=== PATIENT | female | born 2000 | race Caucasian/White ===

== ENCOUNTER 2022-07-21 12:11 | Emergency (ER) | payer MEDICAID ==
[~2022-07-21] VITALS: Ht 160 cm; Wt 50.0 kg
[2022-07-21 12:37] VITALS: BP 128/69
[2022-07-21 14:30] LABS: CLARITY URINE CLOUDY (CLEAR); COLOR URINE YELLOW (YELLOW); KETONES URINE NEGATIVE (NEGATIVE); LEUKOCYTE ESTERASE URINE 3+ (NEGATIVE); NITRITE URINE POSITIVE (NEGATIVE); OCCULT BLOOD URINE 2+ (NEGATIVE); PH URINE 7.5 (4.5-8.0); PROTEIN URINE NEGATIVE (NEGATIVE); UROBILINOGEN URINE 0.2 E.U./dL (0.2-1.0)
[2022-07-21] MEDS ORDERED: CEFTRIAXONE SODIUM 500 MG/VIAL IM ONE (14:45)
[2022-07-21] MEDS ORDERED: CEPH500C2 MT (15:21)
[2022-07-21] MEDS ORDERED: DOXY100C5 MT (15:21)
[2022-07-24 05:09] LABS: NEISSERIA GONORRHOEAE NAA Negative (Negative)
== END 2022-07-21 15:52 | disposition home or self-care (01) ==
LOC: ER 12:11
DX: N30.00 Acute cystitis without hematuria (principal); J45.909 Unspecified asthma, uncomplicated; Z20.2 Contact with and (suspected) exposure to infections with a predominantly sexual mode of transmission
CPT/HCPCS: 81003; 81025; 87077; 87086; 87186; 87491; 87591; 96372; 99283; J0696